=== PATIENT | male | born 1985 | race Caucasian/White ===

== ENCOUNTER 2019-12-30 22:27 | Emergency (ER) | payer OTHER ==
[2019-12-30] MEDS ORDERED: diPHENhydraMINE IV* 50 MG/ML 1 ml VIAL (BENADRYL) IM ONE (22:28)
[2019-12-30] MEDS ORDERED: Haloperidol INJ IV/IM* 5 MG/ML AMP IM ONE (22:28)
[2019-12-30] MEDS ORDERED: LORazepam INJ* 2 MG/ML 1 ML VIAL IM ONE (22:28)
[2019-12-30] MEDS ORDERED: NS 0.9% 1000 ML** 1,000 ML IV ONE (22:28)
--- NOTE | 2019-12-30 22:35 | ED ---
Substance Abuse/Use - HPI Summary HPI Summary: The patient is a 34-year-old male brought in to [facility] by [facility] [employer] as a 2209 with concerns for EtOH intoxication and combative behaviors tonight. Per police, the patient has been staying with his mother for a few weeks and has been acting appropriately except for when he drinks. Tonight , he was yelling and pushing his mom, warranting her call to the police and ultimately the patient being placed in handcuffs. He was placed in a spit mask by police. The patients girlfriend has also been acting this way, but she is with the patients mother at this time. Past medical history significant for anxiety, depression, inpatient and outpatient treatment, violent episodes against others, polysubstance abuse (heroin, EtOH), hepatitis C, thrombocytopenia, jaundice, heavy smoker. Level 5 Caveat secondary to patient being intoxicated and agitated. History obtained from police and medical records. - History Of Current Complaint Stated Complaint: [id number] PER LAW Time Seen by Provider: 12/30/19 22:27 Hx Obtained From: Medical Records, Other: - police Hx From Patient Unobtainable Due To: Other - Level 5 Caveat secondary to patient being intoxicated and agitated. Ingestion History: Type/Name Of Drug - EtOH Timing Of Abuse: Daily Severity Initially: Severe Severity Currently: Severe Associated Signs And Symptoms: Other: - agitation, combative - Allergies/Home Medications Allergies/Adverse Reactions: Allergies Allergy/AdvReac Type Severity Reaction Status Date / Time haloperidol Allergy Muscle Ache Verified 12/30/19 22:43 PMH/Surg Hx/FS Hx/Imm Hx Endocrine/Hematology History: Reports: Other Endocrine/Hematological Disorders - Thrombocytopenia Cardiovascular History: Denies: Hx Pacemaker/ICD Respiratory History: Denies: Hx Asthma, Hx Chronic Bronchitis GI History: Reports: Hx Jaundice, Other GI Disorders - Gastroenteritis Musculoskeletal History: Reports: Hx Orthopedic Injury, Other Musculoskeletal History - Per pt "bone removed from left elbow" , L ankle wound 05/2015 Denies: Hx Arthritis, Hx Back Problems Sensory History: Denies: Hx Hearing Aid Psychiatric History: Reports: Hx Anxiety - pt self reports a hx of episodic anxiety, Hx Depression - pt self reports episodic depression, Hx Inpatient Treatment - see [facility] treatment notes and documentation, Hx Community Mental Health Tx - pt referred to [facility] follow [facility] dc, pt did not f/u., Hx of Violent Episodes Against Others - hx of legal problems and noted threats towards other on [facility], Hx Substance Abuse - polysubstance pt asserts "I have tried everything". , Other Psychiatric Issues/Disorders - [place]- Polysubstance dependance, substance induced mood disorder... Denies: Hx Eating Disorder, Hx Panic Disorder, Hx Suicide Attempt - pt has falsely expressed prior suicidial ideation per the report of the pt - Surgical History Surgical History: Yes Surgery Procedure, Year, and Place: LEFT ankle jun 2015 Hx Anesthesia Reactions: No - Immunization History Date of Tetanus Vaccine: pt states unsure Date of Influenza Vaccine: none Infectious Disease History: Reports: Hx Hepatitis - Hep C, Hx of Known/ Suspected MRSA, History Other Infectious Disease - Scabies - Family History Known Family History: Negative: Cardiac Disease, Hypertension - Social History Alcohol Use: Daily Alcohol Amount: alcohol abuse Hx Substance Use: Yes Substance Use Type: Reports: Heroin, Prescribed Substance Use Comment - Amount & Last Used: ex-user of heroin, now uses prescribed opiates Hx Tobacco Use: Yes Smoking Status (MU): Heavy Every Day Tobacco Smoker Type: Cigarettes Amount Used/How Often: 1 ppd Have You Smoked in the Last Year: Yes - Additional Comments History Additional Comments: anxiety, depression, inpatient and outpatient treatment, violent episodes against others, polysubstance abuse (heroin), EtOH abuse, heavy smoker, hepatitis C, thrombocytopenia, jaundice Review of Systems - ROS Summary Review of Systems Summary: Home Medications Medication Instructions Recorded Confirmed Type Clonidine HCl 0.2 mg PO Q8HR PRN #20 tab 01/09/16 Rx Ciprofloxacin TAB* [Cipro Tab*] 500 mg PO BID #20 tab 01/16/16 Rx oxyCODONE TAB* [Roxycodone TAB 5 10 mg PO Q6H PRN #20 tab MDD 4 01/16/16 Rx mg*] Positive: Other - EtOH intoxication, combative, agitated All Other Systems Reviewed And Are Negative: No - Comments Additional Review of Systems Comments: Level 5 Caveat secondary to patient being intoxicated and agitated. Physical Exam - Summary Physical Exam Summary: General: Well-developed, Well-nourished male. Moderately agitated upon arrival. HEENT: Normocephalic, Atraumatic. Eyes: Conjuctiva normal, PERRL. Oropharynx: Clear, mucous membranes moist, (-) exudates. Neck: Soft, FROM, (-) lymphadenopathy, (-) thyromegaly, (-) JVD. Cardiovascular: Normal sinus rhythm, (-) murmur. Lungs: Clear to auscultation bilaterally (-) wheezes, (-) rales, (-) rhonchi. Abdomen: Soft, non-tender, non-distended, (-) organomegaly, normal bowel sounds. Back: (-) CVA tenderness Extremities: No edema. Skin: Warm, dry, (-) rash. Neuro: Alert and oriented x3, moves all extremities equally. No ataxia. No gait disturbance. No sensory deficit. Normal strength, normal sensation. Psychiatric: Moderately agitated. Uncooperative, screaming, swearing, spitting. Triage Information Reviewed: Yes Vital Signs Reviewed: Yes Completion Of Physical Exam Limited Due To: Level 5 - patient is intoxicated and agitated Procedures - Sedation Patient Received Moderate/Deep Sedation with Procedure: No Diagnostics - Laboratory Result Diagrams: 12/30/19 23:52 12/30/19 23:52 Lab Statement: Any lab studies that have been ordered have been reviewed, and results considered in the medical decision making process. Re-Evaluation - Re-Evaluation First Eval Re-Evaluation Time: 22:28 Comment: Patient placed in physical restraints. Chemical restraints administered. Will re-evaluate. Second Eval Re-Evaluation Time: 22:50 Change: Unchanged Comment: Patient agitated and uncooperative, administered more Ativan. Physical restraints remain in place. Third Eval Re-Evaluation Time: 23:05 Change: Unchanged Comment: Patient continues to be agitated, yelling, swearing, administered Ketamine, will continue to monitor. Physical restraints remain in place. Fourth Eval Re-Evaluation Time: 23:28 Change: Improved Comment: Patient is asleep but becomes agitated with BP cuff and attempt for restraint removal. Will continue restraints at this time until patient is more cooperative. Fifth Eval Re-Evaluation Time: 03:31 Change: Improved Comment: Patient is asleep, calm, cooperative. Physical restraints removed. Sixth + Eval Re-Evaluation Time: 04:50 Comment: Patient is safe for Q15 observation. Course/Dx - Course Course Of Treatment: 34 year old male wiht acute alcohol intoxication. brought by police from his mother's home where he has been staying for a few weeks. he was very aggressive and pushing his mother. patient's girlfriend was also intoxicated and her mother is coming to pick her up from same home. patient was violent and uncooperative with police, spitting. continued behavior here and chemical and physical restraints were ordered after patient could not be redirected or deescalated. patient slept soundly the rest of night unless irritated by blood pressure cuff or trying to remove restraints. signed out at change of shift awaiting sobriety and reevaluation. - Diagnoses Provider Diagnoses: Acute alcohol intoxication - Critical Care Time Critical Care Time: 30-74 min - 48 minutes Discharge ED - Sign-Out/Discharge Documenting (check all that apply): Sign-Out Patient Signing out patient TO: Jake Del Toro - Patient is a sign-out to Dr. Jake Del Toro MD, at 0700 on 12/31/2019, pending sobriety, re-evaluation, and disposition. - Discharge Plan Condition: Stable Disposition: HOME Patient Education Materials: Abuse of Alcohol (ED) Referrals: Care [facility] [Outside] Additional Instructions: You were seen in the emergency department for alcohol intoxication. Please don' t drink and drive. Follow up with your doctor. - Billing Disposition and Condition Condition: STABLE Disposition: Home - Attestation Statements Document Initiated by Xiomara: Yes Documenting Scribe: Kylah Landry Provider For Whom Xiomara is Documenting (Include Credential): Dr. Taylor Massey MD Scribe Attestation: Kylah Smith scribed for Dr. Taylor Massey MD on 12/31/19 at 2349. Scribe Documentation Reviewed: Yes Provider Attestation: The documentation as recorded by the Kylah gatica accurately reflects the service I personally performed and the decisions made by me, Dr. Taylor Massey MD Status of [place] Document: Viewed - Assessment for Patient Restraint Face to Face Encounter Date: 12/30/19 Face to Face Encounter Time: 23:28 Evaluation of the Patient's Immediate Situation: Patient continues in restraints. Whenever the restraints are removed, he becomes agitated. Patient's Reaction to Intervention: Sleeping soundly unless stimulated by blood pressure cuff or removal of restraint. Patient's Medication and Behavioral Condition: Patient received Haldol, Benadryl, Ativan, and additional Ativan. After a period of time, he was able to rest comfortably. Evaluate Need for Continued Restraint: Continue
[2019-12-30] MEDS ORDERED: Lorazepam PYXIS KEY PRN (22:52)
[2019-12-30] MEDS ORDERED: LORazepam INJ* 2 MG/ML 1 ML VIAL IV PUSH ONE (22:52)
[2019-12-30] MEDS ORDERED: Lorazepam PYXIS KEY ONE (22:54)
[2019-12-30] MEDS ORDERED: KETAMINE HCL* 50 MG/ML 10 ML VIAL IV ONE (23:07)
[2019-12-31 00:08] LABS: Urine Benzodiazepine Screen None Detected (None Detect); Urine Opiates Screen None Detected (None Detect)
[2019-12-31 00:20] LABS: ALT 15 U/L (7-52); AST 19 U/L (13-39); Albumin 4.2 g/dL (3.2-5.2); Albumin/Globulin Ratio 1.8 (1-3); Alkaline Phosphatase 59 U/L (34-104); Anion Gap 9 mmol/L (2-11); BUN/Creatinine Ratio 14.7 (8-20); Blood Urea Nitrogen 14 mg/dL (6-24); CO2 Carbon Dioxide 22 mmol/L (22-32); Calcium 8.5 mg/dL (8.6-10.3); Chloride 109 mmol/L (101-111); EGFR African American 111.2 (>60); EGFR Non-African American 91.9 (>60); Globulin 2.4 g/dL (2-4); Glucose 106 mg/dL (70-100); Potassium 3.5 mmol/L (3.5-5.0); Sodium 140 mmol/L (135-145); Total Protein 6.6 g/dL (6.4-8.9)
[2019-12-31 00:28] LABS: Hematocrit 42 % (42-52); Hemoglobin 14.7 g/dL (14.0-18.0); Mean Corpuscular HGB Conc 35 g/dL (31-36); Mean Corpuscular Hemoglobin 33 pg (27-31); Mean Corpuscular Volume 94 fL (80-94); Red Blood Count 4.47 10^6 /uL (4.18-5.48); Red Cell Distribution Width 13 % (10-15); White Blood Count 6.2 10^3/uL (3.5-10.8)
[2019-12-31 00:29] LABS: ABS Basophils 0.1 10^3/ul (0-0.2); ABS Eosinophils 0.3 10^3/ul (0-0.6); ABS Lymphocytes 1.4 10^3/ul (1.0-4.8); ABS Monocytes 0.2 10^3/ul (0-0.8); ABS Neutrophils 4.3 10^3/ul (1.5-7.7); Eosinophil % 4.2 %; Lymphocyte % 22.7 %; Nucleated Red Blood Cells % 0.1
[2019-12-31 00:58] LABS: Acetaminophen < 15 mcg/mL; Alcohol 323 mg/dL (<10); Salicylate < 2.50 mg/dL (<30)
[2019-12-31 01:32] LABS: Platelet Count Platelets clumped. 10^3/uL (150-450)
--- NOTE | 2019-12-31 07:14 | ED ---
Progress - Progress Note Progress Note: This pt is a sign out to Dr. Jake Del Toro MD from Dr. Taylor Massey MD at shift change 0700 12/31/2019 pending sobriety and disposition. Re-Evaluation - Re-Evaluation First Eval Re-Evaluation Time: 08:04 Change: Improved Comment: Pt denies any SI or HI. Will be discharged home and will call family for a ride. Ambulatory w steady gait, alert and oriented 3. Second Eval Re-Evaluation Time: 22:50 Change: Unchanged Comment: Patient agitated and uncooperative, administered more Ativan. Physical restraints remain in place. Third Eval Re-Evaluation Time: 23:05 Change: Unchanged Comment: Patient continues to be agitated, yelling, swearing, administered Ketamine, will continue to monitor. Physical restraints remain in place. Fourth Eval Re-Evaluation Time: 23:28 Change: Improved Comment: Patient is asleep but becomes agitated with BP cuff and attempt for restraint removal. Will continue restraints at this time until patient is more cooperative. Fifth Eval Re-Evaluation Time: 03:31 Change: Improved Comment: Patient is asleep, calm, cooperative. Physical restraints removed. Sixth + Eval Re-Evaluation Time: 04:50 Comment: Patient is safe for Q15 observation. Course/Dx - Course Course Of Treatment: This pt is a sign out to Dr. Jake Del Toro MD from Dr. Taylor Massey MD at shift change 0700 12/31/2019 pending sobriety and disposition. - Diagnoses Provider Diagnoses: Acute alcohol intoxication - Critical Care Time Critical Care Time: 30-74 min - 48 minutes Discharge ED - Sign-Out/Discharge Documenting (check all that apply): Patient Departure - discharge - Discharge Plan Condition: Stable Disposition: HOME Patient Education Materials: Abuse of Alcohol (ED) Referrals: Care [facility] [Outside] Additional Instructions: You were seen in the emergency department for alcohol intoxication. Please don' t drink and drive. Follow up with your doctor. - Billing Disposition and Condition Condition: STABLE Disposition: Home - Attestation Statements Document Initiated by Scribe: Yes Documenting Scribe: Rajan Holman Provider For Whom Scribe is Documenting (Include Credential): Jake Del Toro MD Scribe Attestation: I, Rajan Holman, scribed for Jake Del Toro MD on 12/31/19 at 0809. Scribe Documentation Reviewed: Yes Provider Attestation: The documentation as recorded by the scribeRajan accurately reflects the service I personally performed and the decisions made by me, Jake Del Toro MD Status of Scribe Document: Viewed
[2019-12-31 08:21] VITALS: BP 117/83
== END 2019-12-31 08:20 | disposition home or self-care (01) ==
LOC: ED 22:27
DX: F10.129 Alcohol abuse with intoxication, unspecified (principal); Z88.8 Allergy status to other drugs, medicaments and biological substances; F17.210 Nicotine dependence, cigarettes, uncomplicated
CPT/HCPCS: 36415; 80053; 80307; 80320; 80329; 83605; 85025; 96361; 96374; 99285; G0480; J1200; J1630; J2060

== ENCOUNTER 2020-10-11 14:03 | Inpatient (IN) ==
[2020-10-11] MEDS ORDERED: Ondansetron 4 mg VIAL 2 MG/ML 2 ml VIAL IV ONE ×2 (16:24→20:32)
[2020-10-11] MEDS ORDERED: NS 0.9% 1000 ml BAG 1,000 ML IV ONE (16:24)
[2020-10-11] MEDS ORDERED: Morphine 4 MG/ML VIAL (1 ml) IV ONE ×2 (16:25→20:32)
[2020-10-11] MEDS ORDERED: Famotidine IV 10 MG/ML 2 ml VIAL (20 mg) IV SLOW PU ONE (16:31)
[2020-10-11 18:02] LABS: ABS Lymphocytes 0.7 10^3/ul (1.0-4.8); ABS Monocytes 0.7 10^3/ul (0-0.8); ABS Neutrophils 17.7 10^3/ul (1.5-7.7); Eosinophil % 0.1 %; Hematocrit 44 % (42-52); Hemoglobin 15.4 g/dL (14.0-18.0); Lymphocyte % 3.8 %; Mean Corpuscular HGB Conc 35 g/dL (31-36); Mean Corpuscular Hemoglobin 33 pg (27-31); Mean Corpuscular Volume 94 fL (80-94); Mean Platelet Volume 9.7 fL (7.4-10.4); Platelet Count 131 10^3/uL (150-450); Red Blood Count 4.73 10^6 /uL (4.18-5.48); Red Cell Distribution Width 14 % (10-15); White Blood Count 19.2 10^3/uL (3.5-10.8)
[2020-10-11 18:24] LABS: Albumin 4.4 g/dL (3.2-5.2); Albumin/Globulin Ratio 1.7 (1-3); BUN/Creatinine Ratio 27.4 (8-20); C Reactive Protein 1.76 mg/L (<8.01); Calcium 9.7 mg/dL (8.6-10.3); EGFR African American 127.3 (>60); EGFR Non-African American 105.2 (>60); Globulin 2.6 g/dL (2-4); Total Bilirubin 1.2 mg/dL (0.2-1.0)
[2020-10-11] MEDS ORDERED: Iohexol 300 (CONTRAST) 10 ML SDV IV ONE (19:33)
[2020-10-11] MEDS ORDERED: Lorazepam PYXIS KEY PRN ×2 (21:20→22:32)
[2020-10-11] MEDS ORDERED: LORazepam 2 mg VIAL 1 ml IV PUSH ONE (21:20)
[2020-10-11 21:32] LABS: Urine Appearance Clear; Urine Bilirubin Negative (Negative); Urine Blood Negative (Negative); Urine Color Yellow; Urine Glucose Negative (Negative); Urine Ketones 1+ (Negative); Urine Nitrite Negative (Negative); Urine Protein 1+(30 mg/dL) (Negative); Urine Specific Gravity 1.042 (1.010-1.030); Urine Urobilinogen Negative (Negative)
[2020-10-11 21:37] LABS: Urine Bacteria Absent (Absent); Urine Red Blood Cell Trace(0-2/hpf) (Absent); Urine White Blood Cell Trace(0-5/hpf) (Absent)
[2020-10-11] MEDS ORDERED: HYDROmorphone 1 MG/1 ML SYRINGE IV ONE (21:47)
[2020-10-11] MEDS ORDERED: Prochlorperazine 5 mg/ml 2 ml VIAL (10 mg) IV PRN (21:49)
[2020-10-11] MEDS ORDERED: NS 0.9% 1000 ml BAG 1,000 ML IV SCH ×2 (22:00→22:31)
[2020-10-11] MEDS: Pantoprazole VIAL 40 MG VIAL IV SCH (23:14)
[2020-10-11 23:52] LABS: Urine Benzodiazepine Screen None Detected (None Detect); Urine Cannabinoids Screen None Detected (None Detect); Urine Opiates Screen Presumptive Positive (None Detect)
[2020-10-12] MEDS ORDERED: HYDROmorphone 1 MG/1 ML SYRINGE IV ONE (00:07)
[2020-10-12] MEDS ORDERED: HYDROmorphone 1 MG/1 ML SYRINGE IV SLOW PU PRN (00:32)
[2020-10-12] MEDS ORDERED: HYDROmorphone 1 MG/1 ML SYRINGE IV SLOW PU SCH (02:00)
[2020-10-12 06:32] LABS: Hematocrit 43 % (42-52); Hemoglobin 14.9 g/dL (14.0-18.0); Mean Corpuscular HGB Conc 35 g/dL (31-36); Mean Corpuscular Hemoglobin 33 pg (27-31); Mean Corpuscular Volume 95 fL (80-94); Mean Platelet Volume 9.3 fL (7.4-10.4); Platelet Count 100 10^3/uL (150-450); Red Blood Count 4.54 10^6 /uL (4.18-5.48); Red Cell Distribution Width 14 % (10-15); White Blood Count 11.1 10^3/uL (3.5-10.8)
[2020-10-12 06:49] LABS: Albumin 3.5 g/dL (3.2-5.2); Albumin/Globulin Ratio 1.5 (1-3); BUN/Creatinine Ratio 24.1 (8-20); Calcium 8.6 mg/dL (8.6-10.3); EGFR African American 122.3 (>60); EGFR Non-African American 101.1 (>60); Globulin 2.3 g/dL (2-4); Indirect Bilirubin 1.4 mg/dL (0.3-1.0); Potassium 3.8 mmol/L (3.5-5.0); Total Bilirubin 1.7 mg/dL (0.2-1.0); Total Protein 5.8 g/dL (6.4-8.9)
[2020-10-12] MEDS: NS 0.9% 1000 ml BAG 1,000 ML IV SCH ×2 (10:25→22:44)
[2020-10-12] MEDS: HYDROmorphone 1 MG/1 ML SYRINGE IV SLOW PU PRN ×4 (10:25→22:44)
[2020-10-12] MEDS: Ondansetron 4 mg VIAL 2 MG/ML 2 ml VIAL IV PRN ×3 (10:33→22:37)
[2020-10-12] MEDS: LORazepam 2 mg VIAL 1 ml IV PUSH PRN ×3 (12:38→22:43)
[2020-10-12] MEDS: Pantoprazole VIAL 40 MG VIAL IV SCH (22:43)
[2020-10-13] MEDS: LORazepam 2 mg VIAL 1 ml IV PUSH PRN ×2 (02:47→06:11)
[2020-10-13] MEDS: HYDROmorphone 1 MG/1 ML SYRINGE IV SLOW PU PRN ×3 (02:48→11:41)
[2020-10-13] MEDS: NS 0.9% 1000 ml BAG 1,000 ML IV SCH ×2 (08:30→15:52)
[2020-10-13] MEDS ORDERED: HYDROmorphone 1 MG/1 ML SYRINGE IV SLOW PU PRN (12:26)
[2020-10-13 14:40] VITALS: BP 139/80
[2020-10-13] MEDS: Ondansetron 4 mg VIAL 2 MG/ML 2 ml VIAL IV PRN (16:01)
== END 2020-10-13 16:14 | disposition left against medical advice (07) ==
LOC: ED 14:03 → MED 21:57
PROVIDERS: ADMIT Hospitalist; ATTEND Student in an Organized Health Care Education/Training Program

== ENCOUNTER 2020-10-14 13:36 | Inpatient (IN) ==
[2020-10-14] MEDS ORDERED: HYDROmorphone 1 MG/1 ML SYRINGE IV ONE ×2 (14:47→17:10)
[2020-10-14] MEDS ORDERED: NS 0.9% 1000 ml BAG 1,000 ML IV ONE (14:47)
[2020-10-14 16:07] LABS: ALT 8 U/L (7-52); AST 18 U/L (13-39); Albumin/Globulin Ratio 1.4 (1-3); Alkaline Phosphatase 62 U/L (34-104); Anion Gap 5 mmol/L (2-11); Blood Urea Nitrogen 8 mg/dL (6-24); C Reactive Protein 139.07 mg/L (<8.01); CO2 Carbon Dioxide 26 mmol/L (22-32); Calcium 8.2 mg/dL (8.6-10.3); Chloride 103 mmol/L (101-111); EGFR African American 149.7 (>60); EGFR Non-African American 123.7 (>60); Globulin 2.2 g/dL (2-4); Glucose 103 mg/dL (70-100); Sodium 134 mmol/L (135-145); Total Protein 5.2 g/dL (6.4-8.9)
[2020-10-14 16:24] LABS: ABS Eosinophils 0.3 10^3/ul (0-0.6); ABS Lymphocytes 0.9 10^3/ul (1.0-4.8); ABS Monocytes 0.7 10^3/ul (0-0.8); ABS Neutrophils 10.4 10^3/ul (1.5-7.7); Eosinophil % 2.2 %; Hematocrit 31 % (42-52); Hemoglobin 10.9 g/dL (14.0-18.0); Mean Corpuscular HGB Conc 35 g/dL (31-36); Mean Corpuscular Hemoglobin 33 pg (27-31); Mean Corpuscular Volume 95 fL (80-94); Mean Platelet Volume 8.9 fL (7.4-10.4); Platelet Count 80 10^3/uL (150-450); Red Blood Count 3.28 10^6 /uL (4.18-5.48); Red Cell Distribution Width 13 % (10-15); White Blood Count 12.2 10^3/uL (3.5-10.8)
[2020-10-14 16:34] LABS: Alcohol, S < 10 mg/dL (<10)
[2020-10-14 16:40] LABS: Lipase 1430 U/L (11.0-82.0)
[2020-10-14] MEDS ORDERED: Ondansetron 4 mg VIAL 2 MG/ML 2 ml VIAL IV PRN (18:11)
[2020-10-14] MEDS ORDERED: Prochlorperazine 5 mg/ml 2 ml VIAL (10 mg) IV PRN (18:12)
[2020-10-14] MEDS ORDERED: NS 0.9% 1000 ml BAG 1,000 ML IV SCH (18:15)
[2020-10-14] MEDS: Pantoprazole VIAL 40 MG VIAL IV SCH (18:32)
[2020-10-14] MEDS: KCL 20 MEQ/100 ML IVPREMIX 20 MEQ/100 ML BAG IV SCH ×2 (19:15→23:07)
[2020-10-14] MEDS: HYDROmorphone 1 MG/1 ML SYRINGE IV SLOW PU PRN ×2 (19:40→22:52)
[2020-10-15] MEDS: Potassium Chloride IV 40 MEQ in Lactated Ringers 1000 ml BAG 1,000 ML IVPB SCH ×3 (00:05→23:05)
[2020-10-15] MEDS: HYDROmorphone 1 MG/1 ML SYRINGE IV SLOW PU PRN ×8 (01:45→22:56)
[2020-10-15 06:19] LABS: ABS Eosinophils 0.2 10^3/ul (0-0.6); ABS Lymphocytes 0.9 10^3/ul (1.0-4.8); ABS Monocytes 0.6 10^3/ul (0-0.8); ABS Neutrophils 7.2 10^3/ul (1.5-7.7); Eosinophil % 2.5 %; Hematocrit 28 % (42-52); Hemoglobin 9.9 g/dL (14.0-18.0); Lymphocyte % 10.5 %; Mean Corpuscular HGB Conc 36 g/dL (31-36); Mean Corpuscular Hemoglobin 34 pg (27-31); Mean Corpuscular Volume 95 fL (80-94); Mean Platelet Volume 8.8 fL (7.4-10.4); Platelet Count 74 10^3/uL (150-450); Red Blood Count 2.92 10^6 /uL (4.18-5.48); Red Cell Distribution Width 13 % (10-15); White Blood Count 8.9 10^3/uL (3.5-10.8)
[2020-10-15 07:16] LABS: Calcium 8.1 mg/dL (8.6-10.3); Potassium 3.2 mmol/L (3.5-5.0)
[2020-10-15 07:21] LABS: BUN/Creatinine Ratio 11.6 (8-20); EGFR African American 159.8 (>60); EGFR Non-African American 132.1 (>60)
[2020-10-15] MEDS: Pantoprazole VIAL 40 MG VIAL IV SCH (19:59)
[2020-10-16] MEDS: Potassium Chloride IV 40 MEQ in Lactated Ringers 1000 ml BAG 1,000 ML IVPB SCH ×2 (00:57→08:16)
[2020-10-16] MEDS: HYDROmorphone 1 MG/1 ML SYRINGE IV SLOW PU PRN ×7 (01:58→21:05)
[2020-10-16 05:19] LABS: ABS Basophils 0.1 10^3/ul (0-0.2); ABS Eosinophils 0.2 10^3/ul (0-0.6); ABS Lymphocytes 1.1 10^3/ul (1.0-4.8); ABS Monocytes 0.6 10^3/ul (0-0.8); ABS Neutrophils 5.5 10^3/ul (1.5-7.7); Hematocrit 26 % (42-52); Hemoglobin 9.3 g/dL (14.0-18.0); Lymphocyte % 14.9 %; Mean Corpuscular HGB Conc 35 g/dL (31-36); Mean Corpuscular Hemoglobin 33 pg (27-31); Mean Corpuscular Volume 95 fL (80-94); Mean Platelet Volume 8.7 fL (7.4-10.4); Platelet Count 95 10^3/uL (150-450); Red Blood Count 2.77 10^6 /uL (4.18-5.48); Red Cell Distribution Width 13 % (10-15); White Blood Count 7.5 10^3/uL (3.5-10.8)
[2020-10-16 05:36] LABS: Anion Gap 3 mmol/L (2-11); BUN/Creatinine Ratio 11.8 (8-20); Blood Urea Nitrogen 9 mg/dL (6-24); CO2 Carbon Dioxide 29 mmol/L (22-32); Calcium 8.1 mg/dL (8.6-10.3); Chloride 105 mmol/L (101-111); EGFR African American 142.9 (>60); EGFR Non-African American 118.1 (>60); Glucose 112 mg/dL (70-100); Potassium 3.5 mmol/L (3.5-5.0); Sodium 137 mmol/L (135-145)
[2020-10-16] MEDS ORDERED: Senna TAB 8.6 mg TAB PO ONE (10:45)
[2020-10-16 11:59] LABS: % Iron Saturation 10 % (15-55); Iron 20 ug/dL (50-212); Total Iron Binding Capacity 192 mcg/dL (250-450); Transferrin 137 mg/dL (203-362); Unsaturated Iron Binding < 177 ug/dL
[2020-10-16 12:21] LABS: Ferritin 265.3 ng/mL (24-336)
[2020-10-16 12:24] LABS: Folate 11.25 ng/mL (>3.99)
[2020-10-16 12:25] LABS: Vitamin B12 774 pg/mL (180-914)
[2020-10-16] MEDS ORDERED: Iohexol 300 (CONTRAST) 10 ML SDV IV ONE (16:14)
[2020-10-16] MEDS: Magnesium Hydroxide LIQ 30 ML UDC PO PRN (18:01)
[2020-10-16] MEDS: Pantoprazole VIAL 40 MG VIAL IV SCH (19:58)
[2020-10-16] MEDS ORDERED: HYDROmorphone 1 MG/1 ML SYRINGE IV SLOW PU ONE (21:24)
[2020-10-17] MEDS: HYDROmorphone 1 MG/1 ML SYRINGE IV SLOW PU PRN ×10 (00:34→22:21)
[2020-10-17 05:32] LABS: ABS Eosinophils 0.2 10^3/ul (0-0.6); ABS Lymphocytes 1.2 10^3/ul (1.0-4.8); ABS Monocytes 0.5 10^3/ul (0-0.8); Eosinophil % 3.7 %; Hematocrit 25 % (42-52); Hemoglobin 8.7 g/dL (14.0-18.0); Lymphocyte % 20.9 %; Mean Corpuscular HGB Conc 36 g/dL (31-36); Mean Corpuscular Hemoglobin 34 pg (27-31); Mean Corpuscular Volume 95 fL (80-94); Mean Platelet Volume 8.6 fL (7.4-10.4); Platelet Count 110 10^3/uL (150-450); Red Blood Count 2.57 10^6 /uL (4.18-5.48); Red Cell Distribution Width 13 % (10-15)
[2020-10-17 05:47] LABS: Albumin 2.7 g/dL (3.2-5.2); Albumin/Globulin Ratio 1.3 (1-3); BUN/Creatinine Ratio 10.8 (8-20); Calcium 8.4 mg/dL (8.6-10.3); EGFR African American 171.2 (>60); EGFR Non-African American 141.5 (>60); Globulin 2.1 g/dL (2-4); Potassium 3.8 mmol/L (3.5-5.0); Total Bilirubin 0.4 mg/dL (0.2-1.0); Total Protein 4.8 g/dL (6.4-8.9)
[2020-10-17] MEDS: Magnesium Hydroxide LIQ 30 ML UDC PO PRN (18:11)
[2020-10-17] MEDS: Pantoprazole VIAL 40 MG VIAL IV SCH (19:26)
[2020-10-17 21:41] LABS: Hematocrit 27 % (42-52); Hemoglobin 9.3 g/dL (14.0-18.0)
[2020-10-17] MEDS ORDERED: HYDROmorphone 1 MG/1 ML SYRINGE IV SLOW PU ONE (23:00)
[2020-10-18] MEDS: HYDROmorphone 1 MG/1 ML SYRINGE IV SLOW PU PRN ×11 (00:29→22:15)
[2020-10-18 06:22] LABS: ABS Basophils 0.1 10^3/ul (0-0.2); ABS Eosinophils 0.3 10^3/ul (0-0.6); ABS Lymphocytes 1.3 10^3/ul (1.0-4.8); ABS Monocytes 0.4 10^3/ul (0-0.8); ABS Neutrophils 3.3 10^3/ul (1.5-7.7); Hematocrit 25 % (42-52); Lymphocyte % 24.3 %; Mean Corpuscular HGB Conc 35 g/dL (31-36); Mean Corpuscular Hemoglobin 34 pg (27-31); Mean Corpuscular Volume 95 fL (80-94); Mean Platelet Volume 8.3 fL (7.4-10.4); Nucleated Red Blood Cells % 0.1; Platelet Count 136 10^3/uL (150-450); Red Blood Count 2.67 10^6 /uL (4.18-5.48); Red Cell Distribution Width 13 % (10-15); White Blood Count 5.3 10^3/uL (3.5-10.8)
[2020-10-18 06:29] LABS: Albumin 2.9 g/dL (3.2-5.2); Albumin/Globulin Ratio 1.2 (1-3); BUN/Creatinine Ratio 11.1 (8-20); C Reactive Protein 47.9 mg/L (<8.01); Calcium 8.5 mg/dL (8.6-10.3); EGFR African American 177.5 (>60); EGFR Non-African American 146.7 (>60); Globulin 2.5 g/dL (2-4); Potassium 3.8 mmol/L (3.5-5.0); Total Bilirubin 0.4 mg/dL (0.2-1.0); Total Protein 5.4 g/dL (6.4-8.9)
[2020-10-18] MEDS: Magnesium Hydroxide LIQ 30 ML UDC PO PRN ×2 (09:07→20:10)
[2020-10-18] MEDS: Pantoprazole VIAL 40 MG VIAL IV SCH ×2 (09:08→20:10)
[2020-10-18] MEDS ORDERED: fentaNYL 100 mcg/2 ml 50 MCG/ML VIAL ONE (12:34)
[2020-10-18] MEDS ORDERED: Midazolam 10 mg/10 ml VIAL 1 mg/ml 10 ml VIAL (10 mg) ONE (12:35)
[2020-10-18] MEDS: NS 0.9% 1000 ml BAG 1,000 ML IV SCH (15:15)
[2020-10-18] MEDS ORDERED: HYDROmorphone 1 MG/1 ML SYRINGE IV SLOW PU ONE (22:50)
[2020-10-19] MEDS: HYDROmorphone 1 MG/1 ML SYRINGE IV SLOW PU PRN ×12 (00:20→23:46)
[2020-10-19] MEDS: NS 0.9% 1000 ml BAG 1,000 ML IV SCH (01:27)
[2020-10-19 06:07] LABS: ABS Basophils 0.1 10^3/ul (0-0.2); ABS Eosinophils 0.3 10^3/ul (0-0.6); ABS Lymphocytes 1.4 10^3/ul (1.0-4.8); ABS Monocytes 0.5 10^3/ul (0-0.8); Eosinophil % 4.2 %; Hematocrit 27 % (42-52); Hemoglobin 9.2 g/dL (14.0-18.0); Lymphocyte % 22.2 %; Mean Corpuscular HGB Conc 34 g/dL (31-36); Mean Corpuscular Hemoglobin 33 pg (27-31); Mean Corpuscular Volume 96 fL (80-94); Mean Platelet Volume 7.8 fL (7.4-10.4); Platelet Count 169 10^3/uL (150-450); Red Blood Count 2.78 10^6 /uL (4.18-5.48); Red Cell Distribution Width 13 % (10-15); White Blood Count 6.1 10^3/uL (3.5-10.8)
[2020-10-19 06:48] LABS: BUN/Creatinine Ratio 9.5 (8-20); Calcium 8.5 mg/dL (8.6-10.3); EGFR African American 177.5 (>60); EGFR Non-African American 146.7 (>60); Potassium 3.8 mmol/L (3.5-5.0)
[2020-10-19] MEDS: Pantoprazole VIAL 40 MG VIAL IV SCH ×2 (08:25→21:44)
[2020-10-19] MEDS ORDERED: fentaNYL PATCH 50 MCG/HR 1 PATCH TRANSDERM SCH (20:00)
[2020-10-20] MEDS: HYDROmorphone 1 MG/1 ML SYRINGE IV SLOW PU PRN ×8 (01:51→23:01)
[2020-10-20] MEDS: fentaNYL Patch Check Q Shift NOTE FOLLOW UP SCH ×2 (06:59→18:37)
[2020-10-20] MEDS: Pantoprazole VIAL 40 MG VIAL IV SCH (07:48)
[2020-10-21] MEDS: HYDROmorphone 1 MG/1 ML SYRINGE IV SLOW PU PRN ×4 (02:07→12:31)
[2020-10-21] MEDS: fentaNYL Patch Check Q Shift NOTE FOLLOW UP SCH (06:48)
[2020-10-21 09:40] VITALS: BP 133/81
== END 2020-10-21 13:20 | disposition home or self-care (01) | DRG 282 ==
LOC: ED 13:36 → MEDTELE 18:07
PROVIDERS: ADMIT Internal Medicine; ATTEND Internal Medicine